=== PATIENT | male | born 1990 | race Caucasian/White ===

== ENCOUNTER 2020-03-31 15:22 | Outpatient (RCR) | payer BC ==
[~2020-03-31 15:22] MED LIST: CODE-54 PO; INDM25C PO
== END 2020-06-29 | disposition home or self-care (01) ==
LOC: LAB 15:22
PROVIDERS: ATTEND Obstetrics & Gynecology
DX: N46.9 Male infertility, unspecified (principal)
CPT/HCPCS: 89320